=== PATIENT | female | born 1990 | race Caucasian/White ===

== ENCOUNTER 2023-09-18 21:10 | Emergency (ER) | payer BC | END 2023-09-19 | disposition home or self-care (01) | LOC: MW.ED 21:10 | DX: S86.811A Strain of other muscle(s) and tendon(s) at lower leg level, right leg, initial encounter (principal); S83.91XA Sprain of unspecified site of right knee, initial encounter; W21.01XA Struck by football, initial encounter | CPT/HCPCS: 73562-26-RT; 73562-RT; 99283 ==